=== PATIENT | male | born 1990 ===

== ENCOUNTER 2017-04-01 00:34 | Emergency (ER) | payer MEDICAID, OTHER ==
[~2017-04-01] VITALS: Ht 170.2 cm; Wt 81.8 kg
[2017-04-01 00:47] VITALS: BP 135/86; PULSE 75; RESP 16; O2SAT 98
--- NOTE | 2017-04-01 01:04 | ED.REPORT ---
HPI-Dental/Mouth Prob Date of Service Apr 01, 2017 ED Provider: Nicholas Bey MD Pt is a 26 y/o male presenting to the ED c/o gum swelling about tooth #18 onset today. The patient denies dental pain, fever, chills. He has a history of dental abscess which required drainage in the ED and is wanting to to be evaluated to prevent another visit requiring drainage. Nursing Notes Stated Complaint: POSSIBLE ABCESS-GUMS Chief Complaint: Dental Nursing Notes Reviewed: Yes Allergies: Coded Allergies: No Known Allergies (Unverified Allergy, Unknown, 04/01/17) General Time Seen by MD: 00:46 Chief Complaint Gum swelling Hx Obtained From: Patient Arrived By: Walk-in Onset Occurred: 1 day ago Symptom Duration: Since onset Severity: Current: No pain currently Severity: Maximum: No pain Recent Healthcare: Previous diagnosis Similar Sx Previous: Yes Past Medical History Past Medical History Hx dental abscess Past Surgical History None reported Smoking History Former Smoker Social History Alcohol Use: "Social" Drug Use: THC Ambulatory Status Independent Review of Systems Review of Systems Note: +dental swelling Constitutional: Denies: Chills, Fever Ears / Nose / Throat: Denies: Toothache Respiratory: Denies: Non-productive cough, Shortness of breath GI: Denies: Dysphagia Complete sys rev & neg: except as marked. Physical Exam Initial Vital Signs Vital Signs (First) Date Time Temp Pulse Resp B/P Pulse Ox O2 Delivery O2 Flow Rate FiO2 04/01/17 00:47 36.9 75 16 135/86 98 Room Air Initial VS: Reviewed, Vital signs normal Head / Eyes: Atraumatic, Normocephalic, PERRL Respiratory: Breath sounds normal, Clear to auscultation, No respiratory distress Cardiovascular: Regular rate & rhythm, Heart sounds normal, Intact distal pulses Abdomen / GI: Soft, No distention Extremities: Vascular intact, Neuro intact, No swelling Skin: Warm, Dry, No cyanosis Neurologic: Alert, Oriented, Nonfocal Psychiatric: Mood/affect normal, Behavior normal, Normal thought content ENT: Atraumatic, Airway patent, Mucous membranes moist, Pharynx NL, No pooling of secretions, No trismus, No facial swelling Tooth #18 has significant decay. Swelling about the lingual aspect of tooth 18. Pocket of purulence of which I am able to express purulent drainage with the tongue depressor. Soft sublingual and submandibular spaces. No signs of Orion's Angina Neck: Atraumatic, Supple, No meningismus, Full range of motion, No adenopathy, No swelling Re-Eval/Medical Decision Med Decision/Clinical Course Pt is a healthy 26 y/o male presenting to the ED complaining of swelling about tooth number 18 concern for dental abscess. Pt denies fever, chills, trouble breathing or swallowing, neck swelling, facial swelling. Here in the emergency department the patient is afebrile stable vital signs examination as above. Presentation consistent with significant dental caries and associated abscess from which pus is easily expressed by application of pressure with tongue depressor. I do not feel that incision and drainage is indicated as the small region of the abscess is already actively draining. Considered other possible causes of dental pain including Orion's angina, sinusitis, and molar impaction but these are unlikely based on the history and exam. Discussed with the patient the low cost clinic resources available and provided list on discharge. Also reviewed precautions for return to the ED and the importance of f/u with a dentist, which he agreed to do. He was prescribed a course of clindamycin and advised to return immediately for any worsening swelling, swallowing, difficulty breathing or fevers. He plans to follow up with a dentist next week with plan for tooth extraction. He was discharged in good condition. Re-Evaluation/Progress : Time of Eval: 01:17 Re-Evaluation/Progress Note: Pt rechecked. Informed pt of plan for treatment. Pt understands and agrees with plan for treatment. F/U instructions and RTER warnings given. All questions addressed. Counseled Regarding: Diagnosis, Need for follow-up, When/why to return to ED Discharge & Departure Primary Impression: Dental abscess Additional Impression: Dental caries Disposition: Home Discharge Condition All VS Reviewed: Yes Condition: Stable Patient Instructions: Dental Abscess (ED) Additional Instructions: Thank you for seeking care at the emergency room. You have the beginning of a dental abscess. Our primary goal today in the ED was to evaluate you for any life-threatening conditions. Your evaluation was reassuring. You will be discharged with a prescription for Clindamycin. Take the full course as directed. Take Ibuprofen 600 mg every 6 hours as needed if you develop pain. You should follow-up with a dentist in 1 week. If you don't have a dentist the [facility] [place] [facility] has time for drop-ins. You should return to the ED immediately if you develop fever, shaking chills, mouth/facial/neck swelling, trouble breathing/swallowing, vomiting, or any other concerning signs or symptoms. Thank you for letting us partake in your care today. Referrals: [facility] Scribe Attestation Portions of this note were transcribed by Emeka Grossman. I, Dr. Bey personally performed the history, physical exam and medical decision-making; I reviewed and confirmed the accuracy of the information in the transcribed note. Signed by Radha Romero, 04/01/17 - [id number] Nicholas Bey MD Apr 01, 2017 01:04 EMEKA GROSSMAN Apr 01, 2017 01:17
[2017-04-01 01:45] VITALS: BP 135/86; PULSE 75; RESP 16; O2SAT 98
[2017-04-01] MEDS ORDERED: _Clindamycin 150 mg Capsule PO SCH (06:30)
== END 2017-04-01 01:47 | disposition home or self-care (01) ==
LOC: SED 00:34
DX: K04.7 Periapical abscess without sinus (principal); K02.9 Dental caries, unspecified; Z87.891 Personal history of nicotine dependence